=== PATIENT | female | born 1955 | race Caucasian/White ===

== ENCOUNTER → 2021-07-29 | Outpatient (CLI) | payer OTHER ==
[~2021-07-29] MED LIST: AUGMENTIN 875-1 EACH PO; AUGMENTIN 875875 MG PO; B12INJ IM; CIPRO500 MG PO; CIPROFLOXACIN500 M1 PO; CLONAZEPAM 0.50.5 M1 PO; FLAGYL500 MG PO; HYDROCODON-ACE1 EAC7 PO; HYDROCODONE-AP1 EAC6 PO; LIORESAL 10 MG10 MG PO; LIPITOR; LIPITOR10 MG PO; LOPRESSOR50 MG PO; MIRALAX17 GM PO; NORCO 5-325 TA1 EACH PO; ONDANSETRON HCL4 M2 PO; PEPCID AC20 M1 PO; POTASSIUM20 PO; PREDNISONE 20 M20 M1 PO; PROTONIX; PROTONIX40 M1 PO; TOPROL XL25 MG; TRAMADOL 50 MG50 MG PO; VANCOMYCIN100 MG/ML PO; VITAMIN B-121000 MCG PO; VITAMIN D1000 UNI1 PO; VITAMIN D2000 UNIT PO; ZOFRAN 4 MG ORAL4 M1 DIS; ZOFRAN ODT4 MG PO; ZYRTEC10 M2 PO; [UNRECOGNIZED DRUG - REMARK]
== END ==
LOC: M.CT 09:28
PROVIDERS: ATTEND Family Medicine
DX: Z13.6 Encounter for screening for cardiovascular disorders (principal); I25.10 Atherosclerotic heart disease of native coronary artery without angina pectoris